=== PATIENT | male | born 1955 | race Caucasian/White ===

== ENCOUNTER 2020-12-14 15:02 | Inpatient (IN) | payer MEDICARE, OTHER ==
[~2020-12-14] VITALS: Ht 154.9 cm; Wt 73.5 kg
--- NOTE | 2020-12-14 15:50 | NUR ---
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 PT W SCHIZOPHRENIA AND INCREASING NON MED COMPLIANCE AND DISORGANIZED THINKING. PT BECOMING MORE UNMANAGEABLE AND REFUSING SELF CARE/ADLS ETC. ON FACE TO FACE ASSESSMENT, PT IS ALERT INCONGRUENT AFFECT /ALMOST BRIGHT AFFECT, CALM DIRECTABLE ORIENTED TO PERSON PLACE PURPOSE BUT CONFUSED ON TIME. PT DISORGANIZED W TANGENTIAL THOUGHTS. DENIES SI HI AH VH. VS- BP- 148/77, HR- 78, RR- 18, T- 98.7, SATURATION 98% RA. ACCU CHECK BS- 134. PT IS 162 POUNDS AND 5'1" TALL. SKIN IS INTACT THROUGHOUT. PMHX- HTN. DX- SCHIZOPHRENIA. UNIT ORIENTATION COMPLETED, ORDERS RECEIVED FROM MD AND PSYCHIATRIST. MRSA SWAB DFONE AND[facility] LAB NOTIFIED. PT REFUSES VACCINES. PARANOIA STATED FROM PAST VACCINES. ORDERS RECEIVED NOTED CARRIED OUT.
[2020-12-14 16:00] VITALS: BP 148/77
[2020-12-14] MEDS ORDERED: MAG HYDROX/AL HYDROX/SIMETH 30 ML UDC PO PRN (16:00)
[2020-12-14] MEDS ORDERED: ACETAMINOPHEN 325 MG TABLET PO PRN (16:00)
[2020-12-14] MEDS ORDERED: MAGNESIUM HYDROXIDE 30 ML UDC PO PRN (16:00)
[2020-12-14] MEDS ORDERED: BLOOD SUGAR DIAGNOSTIC 1 EACH STRIP IN ONE (16:00)
[2020-12-14] MEDS ORDERED: QUET25TA PO (17:25)
[2020-12-14] MEDS ORDERED: TRAZ-182 PO (17:25)
[2020-12-14] MEDS ORDERED: DILT180C92 PO (17:25)
[2020-12-14] MEDS ORDERED: LOSA100T31 PO (17:25)
[2020-12-14] MEDS ORDERED: PALI6TAB PO (17:25)
[2020-12-14 20:00] VITALS: BP 140/85
[2020-12-14] MEDS: ZOLPIDEM TARTRATE 5 MG TABLET PO PRN (22:29)
[2020-12-15 07:26] LABS: CHOLESTEROL 150 mg/dL (<200); HDL CHOLESTEROL 61 mg/dL (40-60); LDL 77 mg/dL (0-99); TRIGLYCERIDES 72 mg/dL (30-150)
[2020-12-15 07:35] LABS: ALBUMIN 3.8 g/dL (3.4-5.0); BILIRUBIN,TOTAL 0.9 mg/dL (0.2-1.0); CALCIUM, SERUM 8.7 mg/dL (8.5-10.1); CREATININE 0.7 mg/dL (0.6-1.3); POTASSIUM 3.9 mmol/L (3.5-5.1)
[2020-12-15 08:00] VITALS: BP 159/88
[2020-12-15 08:18] LABS: TOTAL PROTEIN, SERUM 7.7 g/dL (6.4-8.2)
[2020-12-15] MEDS: LOSARTAN POTASSIUM 50 MG TABLET PO SCH (08:33)
[2020-12-15] MEDS: DILTIAZEM HCL CD 180 MG PO SCH (08:34)
--- NOTE | 2020-12-15 09:35 | NUR ---
VANE Point of Contact: SW contacted pts brother Du Singh ([phone]) to discuss pts discharge plan. Pts brother reported hat pt lives with him and he is able to return back home upon discharge located [address] [place] [address]. Pts brother reports that pt is seeing a psychiatrist and med manager car at [facility] ([phone]). SW reported that she will keep pts brother updated about his discharge date.
[2020-12-15] MEDS ORDERED: DIVALPROEX SODIUM 250 MG TABLET.DR PO SCH (11:00)
[2020-12-15] MEDS ORDERED: risperiDONE 1 MG TABLET PO SCH (11:00)
--- NOTE | 2020-12-15 11:42 | NUR ---
Initial Discharge Plan: Pt currently lives with his brother located at [address] [place] [address];([phone]). Per pt, he would like to return home after discharge. Per brother, pt can return home upon discharge. VANE will work with the pt and the MD regarding appropriate discharge planning. SW will form a safe and proper discharge.
[2020-12-15 16:00] VITALS: BP 150/89
[2020-12-15] MEDS: risperiDONE 1 MG TABLET PO SCH (16:38)
[2020-12-15] MEDS: DIVALPROEX SODIUM 250 MG TABLET.DR PO SCH (16:38)
[2020-12-15 20:00] VITALS: BP 138/74
[2020-12-15] MEDS: ZOLPIDEM TARTRATE 5 MG TABLET PO PRN (21:21)
[2020-12-16] MEDS: LORAZEPAM 0.5 MG TABLET PO PRN (01:32)
--- NOTE | 2020-12-16 01:37 | NUR ---
GPS:INCREASED AGITATION PATIENT VERBALIZING INCREASED AGITATION AND INABILITY TO SLEEP. HAD ALREADY RECEIVED PRN AMBIEN AT 21:30. ADMINISTERED PRN ATIVAN WITH PENDING EFFECT. WILL CONTINUE TO MONITOR.
[2020-12-16 08:00] VITALS: BP 151/89
[2020-12-16] MEDS: DILTIAZEM HCL CD 180 MG PO SCH (08:25)
[2020-12-16] MEDS: risperiDONE 1 MG TABLET PO SCH ×2 (08:25→16:15)
[2020-12-16] MEDS: DIVALPROEX SODIUM 250 MG TABLET.DR PO SCH ×3 (08:25→16:14)
[2020-12-16] MEDS: LOSARTAN POTASSIUM 50 MG TABLET PO SCH (09:30)
--- NOTE | 2020-12-16 11:40 | NUR ---
VANE family contact: SW was contacted by pts brother Du Singh ([phone]) who inquired about why pt was put on a 14 day hold. SW informed pts brother that he was put on a 14 day hold because pt is not stabilized yet. Pts brother would like to speak with doctor about the hold. Pts brother informed SW that he is DPOA and states that he will email documentation to [email or web address] VANE will follow up with Dr. Chavis and have him contact pts brother.
[2020-12-16 16:00] VITALS: BP 133/91
[2020-12-16 20:06] VITALS: BP 110/76
[2020-12-17] MEDS: ZOLPIDEM TARTRATE 5 MG TABLET PO PRN ×2 (00:17→21:05)
[2020-12-17 08:00] VITALS: BP 119/95
[2020-12-17] MEDS: LOSARTAN POTASSIUM 50 MG TABLET PO SCH (08:45)
[2020-12-17] MEDS: risperiDONE 1 MG TABLET PO SCH ×2 (08:45→16:29)
[2020-12-17] MEDS: DIVALPROEX SODIUM 250 MG TABLET.DR PO SCH ×3 (08:45→16:29)
[2020-12-17] MEDS: DILTIAZEM HCL CD 180 MG PO SCH (08:45)
[2020-12-17] MEDS: LORAZEPAM 0.5 MG TABLET PO PRN (11:12)
[2020-12-17 16:03] VITALS: BP 123/71
--- NOTE | 2020-12-17 19:30 | NUR ---
GPS RN NOTE, RECEIVED PATIENT AWAKE AND IN BED, NO S/S OR COMPLAINTS OF PAIN AT THIS TIME. PATIENT IS DISPLAYING NO S/S OF APPARENT DISTRESS AT THIS TIME. PATIENT BREATHING IS UNLABORED WITH EQUAL RISE AND FALL OF THE CHEST. PATIENT IS ALERT AND ORIENTED X 3 ON ROOM AIR WITH A SPO2 98%. PATIENT IS COMPLIANT WITH MEDICATIONS, ANXIOUS, MAKES NEEDS KNOWN, DISORGANIZED, NEEDS REDIRECTION, AND IS COOPERATIVE. PATIENT DENIES SUICIDAL AND HOMICIDAL IDEATIONS AT THIS TIME. PATIENT ASSISTED WITH TURNING AND REPOSITIONING Q2HR AND PRN FOR COMFORT AND CIRCULATION. PATIENT HAS NO NEEDS AT THIS TIME. PATIENT EDUCATED ON THE USE OF THE CALL LIGHT. PATIENT BED SIDE RAILS UP X 2 FOR SAFETY. PATIENT BED IS LOCKED, LOW, WITH BED ALARM ON. WILL CONTINUE TO MONITOR THIS PATIENT Q15 MINUTES WITH THE HELP OF STAFF TO MAINTAIN SAFETY.
[2020-12-17 20:09] VITALS: BP 116/70
--- NOTE | 2020-12-17 21:07 | NUR ---
PATIENT HAS A COMPLAINT OF NOT BEING ABLE TO SLEEP AND IS REQUESTING AMBIEN AT THIS TIME. PATIENT VITAL SIGNS ARE STABLE. GAVE AMBIEN 5MG PO HS PRN ORDERED. WILL REASSESS FOR INSOMNIA AND I WILL CONTINUE TO MONITOR THIS PATIENT.
[2020-12-18 08:00] VITALS: BP 140/82
[2020-12-18] MEDS: risperiDONE 1 MG TABLET PO SCH ×2 (08:10→21:30)
[2020-12-18] MEDS: LOSARTAN POTASSIUM 50 MG TABLET PO SCH (08:10)
[2020-12-18] MEDS: DILTIAZEM HCL CD 180 MG PO SCH (08:10)
[2020-12-18] MEDS: DIVALPROEX SODIUM 250 MG TABLET.DR PO SCH ×3 (08:10→16:08)
--- NOTE | 2020-12-18 12:40 | NUR ---
Probable cause hearing: Pts [id number] was upheld on the grounds of gravely disabled.
[2020-12-18 16:00] VITALS: BP 135/83
--- NOTE | 2020-12-18 19:30 | NUR ---
GPS RN NOTE, RECEIVED PATIENT AWAKE AND IN BED, NO S/S OR COMPLAINTS OF PAIN AT THIS TIME. PATIENT IS DISPLAYING NO S/S OF APPARENT DISTRESS AT THIS TIME. PATIENT BREATHING IS UNLABORED WITH EQUAL RISE AND FALL OF THE CHEST. PATIENT IS ALERT AND ORIENTED X 3 ON ROOM AIR WITH A SPO2 98%. PATIENT IS COMPLIANT WITH MEDICATIONS, ANXIOUS, MAKES NEEDS KNOWN, RESPONDING TO INTERNAL STIMULI, DISORGANIZED, NEEDS REDIRECTION, AND IS COOPERATIVE. PATIENT DENIES SUICIDAL AND HOMICIDAL IDEATIONS AT THIS TIME. PATIENT ASSISTED WITH TURNING AND REPOSITIONING Q2HR AND PRN FOR COMFORT AND CIRCULATION. PATIENT HAS NO NEEDS AT THIS TIME. PATIENT EDUCATED ON THE USE OF THE CALL LIGHT. PATIENT BED SIDE RAILS UP X 2 FOR SAFETY. PATIENT BED IS LOCKED, LOW, WITH BED ALARM ON. WILL CONTINUE TO MONITOR THIS PATIENT Q15 MINUTES WITH THE HELP OF STAFF TO MAINTAIN SAFETY.
[2020-12-18 20:56] VITALS: BP 135/77
[2020-12-19] MEDS: ZOLPIDEM TARTRATE 5 MG TABLET PO PRN (00:23)
--- NOTE | 2020-12-19 00:26 | NUR ---
GPS RN NOTE, PATIENT HAS A COMPLAINT OF NOT BEING ABLE TO SLEEP AND IS REQUESTING AMBIEN AT THIS TIME. PATIENT VITAL SIGNS ARE STABLE. GAVE AMBIEN 5MG PO HS PRN ORDERED. WILL REASSESS FOR INSOMNIA AND I WILL CONTINUE TO MONITOR THIS PATIENT.
[2020-12-19 07:03] LABS: BASOPHILS % (AUTO) 0.5 % (0.0-2.0); EOSINOPHILS % (AUTO) 2.6 % (0.0-6.0); HEMATOCRIT 43 % (39-51); HEMOGLOBIN 14.9 g/dL (13.5-17.5); LYMPHOCYTES # (AUTO) 1.4 K/uL (0.8-4.8); MEAN CORPUSCULAR HGB CONC 35 g/dl (31.0-36.0); MEAN CORPUSCULAR VOLUME 93 fL (80-96); MONOCYTES # (AUTO) 0.8 K/uL (0.1-1.30); MONOCYTES % (AUTO) 11.3 % (2.0-12.0); NEUTROPHILS # (AUTO) 4.9 K/uL (1.8-8.9); NEUTROPHILS % (AUTO) 66.6 % (43.0-81.0); PLATELET COUNT (AUTO) 353 K/uL (150-450); RED BLOOD CELL COUNT(AUTO) 4.59 MIL/uL (4.5-6.0); WHITE BLOOD COUNT (AUTO) 7.3 K/uL (4.3-11.0)
[2020-12-19 07:15] LABS: BILIRUBIN,URINE NEGATIVE (NEGATIVE); COLOR,URINE YELLOW (YELLOW); LEUKOCYTE ESTERASE ,URINE NEGATIVE (NEGATIVE); NITRITE, URINE NEGATIVE (NEGATIVE); PH,URINE 6.5 (5.0-8.0); PROTEIN,URINE NEGATIVE (NEGATIVE); UGLUCOSE NEGATIVE (NEGATIVE); UROBILINOGEN,URINE 0.2 EU/dL (0.2)
[2020-12-19 07:29] LABS: BACTERIA,URINE None seen /HPF (None Seen); RBC,URINE 0-2 /HPF (0-2); WBC,URINE NONE SEEN /HPF (0-3)
[2020-12-19 07:30] LABS: SQUAMOUS EPITHELIAL CELL,UR Rare /HPF (None Seen)
[2020-12-19 07:38] LABS: ALBUMIN 3.6 g/dL (3.4-5.0); BILIRUBIN,TOTAL 0.7 mg/dL (0.2-1.0); CALCIUM, SERUM 8.7 mg/dL (8.5-10.1); CREATININE 0.8 mg/dL (0.6-1.3); POTASSIUM 4.1 mmol/L (3.5-5.1); TOTAL PROTEIN, SERUM 7.3 g/dL (6.4-8.2)
[2020-12-19 07:48] LABS: CREATININE, URINE 44.5 MG/DL (30.0-125.0)
[2020-12-19 07:52] LABS: THYROID STIMULATING HORMONE 1.002 uIU/mL (0.358-3.74)
[2020-12-19 08:00] VITALS: BP 149/81
[2020-12-19] MEDS: risperiDONE 1 MG TABLET PO SCH ×2 (08:25→21:12)
[2020-12-19] MEDS: DIVALPROEX SODIUM 250 MG TABLET.DR PO SCH ×3 (08:25→17:28)
[2020-12-19] MEDS: LORAZEPAM 0.5 MG TABLET PO PRN (08:25)
[2020-12-19] MEDS: LOSARTAN POTASSIUM 50 MG TABLET PO SCH (08:26)
[2020-12-19] MEDS: DILTIAZEM HCL CD 180 MG PO SCH (08:26)
[2020-12-19 16:03] VITALS: BP 153/89
[2020-12-19 20:33] VITALS: BP 153/79
[2020-12-20 07:56] VITALS: BP 145/92
[2020-12-20] MEDS: DIVALPROEX SODIUM 250 MG TABLET.DR PO SCH ×3 (09:02→17:39)
[2020-12-20] MEDS: DILTIAZEM HCL CD 180 MG PO SCH (09:03)
[2020-12-20] MEDS: LOSARTAN POTASSIUM 50 MG TABLET PO SCH (09:03)
[2020-12-20] MEDS: risperiDONE 1 MG TABLET PO SCH ×2 (09:03→21:30)
[2020-12-20 15:58] VITALS: BP 148/69
[2020-12-20 20:00] VITALS: BP_SYST 150; BP_SYST 159; BP_DIAS 103
--- NOTE | 2020-12-21 02:39 | NUR ---
GPS RN NOTE PT C/O HEADACHE. PER PT REQUEST, ADMINISTERED TYLENOL 650 MG PO Q6H PRN FOR PAIN. WILL REASSESS PAIN AND CONTINUE TO MONITOR PT.
[2020-12-21] MEDS: LORAZEPAM 0.5 MG TABLET PO PRN (06:25)
--- NOTE | 2020-12-21 06:25 | NUR ---
GPS: INCREASED AGITATION OBSERVED PT PACING UP AND DOWN HALLWAY AND PT VERBALIZED INCREASED AGITATION. ADMINISTERED ATIVAN 1 MG PO Q6H PRN FOR ANXIETY/AGITATION. WILL CONTINUE TO MONITOR PT'S BEHAVIOR.
[2020-12-21 08:00] VITALS: BP 130/80
[2020-12-21] MEDS: DILTIAZEM HCL CD 180 MG PO SCH (08:26)
[2020-12-21] MEDS: LOSARTAN POTASSIUM 50 MG TABLET PO SCH (08:27)
[2020-12-21] MEDS: risperiDONE 1 MG TABLET PO SCH ×2 (08:30→21:23)
[2020-12-21] MEDS: DIVALPROEX SODIUM 250 MG TABLET.DR PO SCH ×2 (08:30→16:30)
--- NOTE | 2020-12-21 09:00 | NUR ---
RN NOTE- PT MED COMPLIANT ANXIOUS AT TIMES, POOR SLEEP LAST NOC, ASKS TO BE LEFT ALONE. RESTING QUIETLY DENIES ALL
[2020-12-21 16:00] VITALS: BP 139/82
[2020-12-21 20:00] VITALS: BP 144/82
[2020-12-21] MEDS: TRAZODONE 50 MG TABLET PO SCH (21:23)
[2020-12-22 08:00] VITALS: BP 125/76
[2020-12-22] MEDS: risperiDONE 1 MG TABLET PO SCH ×2 (08:29→21:18)
[2020-12-22] MEDS: LOSARTAN POTASSIUM 50 MG TABLET PO SCH (08:29)
[2020-12-22] MEDS: DIVALPROEX SODIUM 250 MG TABLET.DR PO SCH ×2 (08:29→17:53)
[2020-12-22] MEDS: DILTIAZEM HCL CD 180 MG PO SCH (08:30)
[2020-12-22 16:00] VITALS: BP 154/76
[2020-12-22 20:00] VITALS: BP 144/86
[2020-12-22] MEDS: TRAZODONE 50 MG TABLET PO SCH (21:17)
[2020-12-23] MEDS: LORAZEPAM 0.5 MG TABLET PO PRN (00:28)
[2020-12-23 08:00] VITALS: BP 141/78
[2020-12-23] MEDS: DILTIAZEM HCL CD 180 MG PO SCH (08:49)
[2020-12-23] MEDS: risperiDONE 1 MG TABLET PO SCH ×2 (08:49→21:13)
[2020-12-23] MEDS: LOSARTAN POTASSIUM 50 MG TABLET PO SCH (08:51)
[2020-12-23] MEDS: DIVALPROEX SODIUM 250 MG TABLET.DR PO SCH ×2 (08:51→17:30)
--- NOTE | 2020-12-23 12:03 | NUR ---
Family contact: SW contacted pts brother Du Singh ([phone]) to discuss pts discharge date of 12/24/2020. Pts brother did not answer the phone. SW will attempt to call pts brother at a later time.
--- NOTE | 2020-12-23 13:33 | NUR ---
Family contact: SW contacted pts brother Du Singh ([phone]) who confirmed pts discharge for tomorrow 12/24/2020. Pts brother reports that he is unable to pick pt up and reports that [facility] stated that they would arrange transportation for him upon discharge. SW will follow up with [facility].
[2020-12-23 16:00] VITALS: BP 150/81
--- NOTE | 2020-12-23 16:35 | NUR ---
Transportation contact: VANE contacted [facility] ([phone]) and informed them that that pt needed transportation back home. [facility] reported that they will fax VANE a transportation request. VANE informed them of her fax # [phone].
[2020-12-23 20:18] VITALS: BP 163/93
[2020-12-23] MEDS: TRAZODONE 50 MG TABLET PO SCH (21:13)
[2020-12-23 23:00] VITALS: BP 134/82
[2020-12-24] MEDS: LORAZEPAM 0.5 MG TABLET PO PRN (02:46)
--- NOTE | 2020-12-24 02:47 | NUR ---
RN NOTES ANXIETY PT. C/O FEELING ANXIOUS , PARANOID ,RESTLESS, ATIVAN 1 MG PO PRN GIVEN PER PT. REQUEST, WILL CONTINUE TO MONITOR.
[2020-12-24 08:00] VITALS: BP 132/77
[2020-12-24] MEDS: DILTIAZEM HCL CD 180 MG PO SCH (08:11)
[2020-12-24] MEDS: risperiDONE 1 MG TABLET PO SCH (08:12)
[2020-12-24] MEDS: DIVALPROEX SODIUM 250 MG TABLET.DR PO SCH ×2 (08:12→16:50)
[2020-12-24] MEDS: LOSARTAN POTASSIUM 50 MG TABLET PO SCH (08:13)
--- NOTE | 2020-12-24 08:21 | NUR ---
Transportation contact: VANE contacted [facility] and spoke with auto club safety program coordinator Anneliese ([phone]). VANE reported that she did not receive a fax with the transportation request. VANE informed Anneliese to email the request form to [email or web address]. VANE will fax transportation request once it has been received.
--- NOTE | 2020-12-24 09:17 | NUR ---
Transportation contact: AVNE faxed [facility] a transportation request to fax # [phone].
--- NOTE | 2020-12-24 09:48 | NUR ---
Dr. Chavis gave an order to D/C hold and D/C home. Pt. without distress, denies suicidal and homicidal. 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
--- NOTE | 2020-12-24 10:38 | NUR ---
Transportation contact: SW contacted [facility] ([phone]) who confirmed that Transportation will be picking pt up from [facility] between 5:30-6:30 pm on 12/24/2020.
--- NOTE | 2020-12-24 14:07 | NUR ---
Car REYES made aware of the discharge and reconciled meds to continue at home.
[2020-12-24 16:00] VITALS: BP 149/80
--- NOTE | 2020-12-24 19:10 | NUR ---
RN NOTE PER AM RN, PATIENT IS DISCHARGING TODAY BACK HOME LOCATED AT [address] [place] [address] VIA [facility] TRANSPORT[facility]. PATIENT'S BROTHER MERCEDES DOUGLAS WAS NOTIFIED ABOUT THE DISCHARGE. WAITING FOR TRANSPORTATION TO ARRIVE.
--- NOTE | 2020-12-24 19:30 | NUR ---
RN NOTE MENDEL GODINEZ FROM [facility] TRANSPORT[facility] ARRIVED TO TELETYPE OR VARITYPE KEYBOARD OPERATOR THE PATIENT. ALL DISCHARGE PAPER WORK & DISCHARGE INSTRUCTIONS WERE GIVEN TO THE PATIENT WITH MEDICATION PRESCRIPTION FORM. PATIENT VERBALIZED UNDERSTANDING. BELONGING LIST WAS REVIEWED BY AM STAFF. PATIENT NOTED TO BE A & O X 4, DENIES SI/HI AT THIS TIME, CALM, COOPERATIVE, PATIENT WAS ESCORTED OUT OF GPS UNIT WITH SALES DEVELOPMENT CONSULTANT MENDEL IN STABLE CONDITION.
== END 2020-12-24 19:34 | DRG 885 ==
LOC: GPS 15:02
PROVIDERS: ADMIT Psychiatry & Neurology Psychiatry; ATTEND Nurse Practitioner Acute Care
DX: F25.0 Schizoaffective disorder, bipolar type (principal); E87.1 Hypo-osmolality and hyponatremia; F39 Unspecified mood [affective] disorder; E66.9 Obesity, unspecified; F41.9 Anxiety disorder, unspecified; I10 Essential (primary) hypertension; Z68.30 Body mass index [BMI] 30.0-30.9, adult; E86.1 Hypovolemia; R73.9 Hyperglycemia, unspecified; Z73.6 Limitation of activities due to disability; F29 Unspecified psychosis not due to a substance or known physiological condition
CPT/HCPCS: 36415; 80053-TC; 80061-TC; 80164-TC; 81001; 82570-TC; 82962-TC; 84300-TC; 84443-TC; 85025-TC; 87081-TC